=== PATIENT | female | born 1945 | race Two or more races ===

== ENCOUNTER 2018-12-28 08:37 | Outpatient (CLI) | payer OTHER ==
[~2018-12-28 08:37] MED LIST: BENADRYL50 MG PO; CIPRO500 MG PO; CLONAZEPAM0.5 MG; SIMVASTATIN10 MG; SYNTHROID50 MCG; ZOLOFT25 MG
== END 2018-12-28 08:43 | disposition home or self-care (01) ==
LOC: SONOGRAMA 08:37
DX: E04.1 Nontoxic single thyroid nodule (principal)

== ENCOUNTER 2020-06-09 08:57 | Outpatient (CLI) | payer OTHER ==
[~2020-06-09 08:57] MED LIST changes: +AZOR 10-20 MG1 EACH PO; +CALCI PO; +FISH OIL PO; +LEVOTHYROXINE25 MCG PO; +MULTIVITA PO; +OXYBU PO; +PLAVIX75 MG PO; +SERTRA PO; +VASOF PO; +[UNRECOGNIZED DRUG - OTHER] PO
== END 2020-06-09 09:02 | disposition home or self-care (01) ==
LOC: LAB 08:57
PROVIDERS: ATTEND Obstetrics & Gynecology Gynecology
DX: Z20.828 Contact with and (suspected) exposure to other viral communicable diseases (principal); Z20.822 Contact with and (suspected) exposure to COVID-19

== ENCOUNTER 2020-06-16 05:55 | Day surgery (SDC) | payer OTHER ==
[2020-06-16] MEDS ORDERED: KEFLEX750 MG PO (12:01)
[2020-06-16] MEDS ORDERED: CODE1TAB37 PO (12:02)
== END 2020-06-16 14:35 | disposition home or self-care (01) ==
LOC: CIR.AMB 05:55
PROVIDERS: ATTEND Obstetrics & Gynecology Gynecology
DX: N32.81 Overactive bladder (principal); Z20.822 Contact with and (suspected) exposure to COVID-19
CPT/HCPCS: 64590; 64581; C1778; L8679

== ENCOUNTER 2022-01-16 20:13 | Emergency (ER) | payer OTHER ==
[~2022-01-16] VITALS: Ht 149.9 cm; Wt 67.6 kg
[~2022-01-16 20:13] MED LIST changes: +CODE1TAB37 PO; +KEFLEX750 MG PO
== END 2022-01-16 23:22 | disposition home or self-care (01) ==
LOC: ER 20:13
DX: S09.8XXA Other specified injuries of head, initial encounter (principal); S19.89XA Other specified injuries of other specified part of neck, initial encounter; S89.82XA Other specified injuries of left lower leg, initial encounter; W19.XXXA Unspecified fall, initial encounter; Y93.89 Activity, other specified; Y92.89 Other specified places as the place of occurrence of the external cause; Z88.6 Allergy status to analgesic agent